=== PATIENT | female | born 1960 | race Caucasian/White ===

== ENCOUNTER → 2016-10-24 | Outpatient (CLI) | payer OTHER ==
[2016-10-24 08:31] LABS: EKG EKG PERFORMED
[2016-10-24 08:48] LABS: Aty Lym Flag Slight; Basophils % (A) 1 %; CH 31.9; CHCM 33.8; Eosinophils # (A) 0.2 k/uL (0-0.7); Eosinophils % (A) 2 %; HCT 49.2 % (34.0-46.0); HDW 2.75; HGB 16.2 gm/dL (11.4-16.0); Luc % (Auto) 5; Lymphocytes # (A) 1.9 k/uL (1.0-4.8); Lymphocytes % (A) 23 %; MCH 31.1 pg (25.0-35.0); MCHC 32.8 g/dL (31.0-37.0); MCV 94.8 fL (80.0-100.0); Mean Platelet Volume 7.4; Monocytes # (A) 0.7 k/uL (0-1.0); Monocytes % (A) 8 %; Neutrophils % (A) 61 %; RBC 5.19 m/uL (3.80-5.40); RDW 14.2 % (11.5-15.5); WBC 8.2 k/uL (3.8-10.6); WBC (Perox) 8.63
[2016-10-24 09:01] LABS: ALT 29 U/L (9-52); AST 16 U/L (14-36); Alkaline Phosphatase 84 U/L (38-126); Anion Gap 11 mmol/L; Blood Urea Nitrogen 15 mg/dL (7-17); Calcium 9.3 mg/dL (8.4-10.2); Carbon Dioxide 24 mmol/L (22-30); Chloride 105 mmol/L (98-107); Glucose 266 mg/dL (74-99); Non-African American GFR(MDRD) >60 (>60 ml/min/1.73 sqM); Potassium 4.6 mmol/L (3.5-5.1); Sodium 140 mmol/L (137-145); Total Bilirubin 0.4 mg/dL (0.2-1.3); Total Protein 7.2 g/dL (6.3-8.2)
--- NOTE | 2016-10-24 10:30 | XR ---
EXAMINATION TYPE: XR chest 2V DATE OF EXAM: 10/24/2016 8:58 AM COMPARISON: None HISTORY: 56-year-old female presurgical evaluation TECHNIQUE: Frontal and lateral views FINDINGS: The cardiomediastinal silhouette, aorta, and pulmonary vasculature are within normal limits. Mild per ibronchial cuffing probably chronic. Otherwise, lungs and pleural spaces are clear. IMPRESSION: Mild peribronchial cuffing probably chronic in the absence of any acute symptoms, probably chronic br onchitis/asthma. No acute process seen.
[2016-10-24 11:19] LABS: Hemoglobin A1C 8.6 % (4.2-6.1)
== END | disposition home or self-care (01) ==
LOC: LABWHC1 08:18
PROVIDERS: ATTEND Surgery Plastic and Reconstructive Surgery
DX: K80.80 Other cholelithiasis without obstruction (principal)
CPT/HCPCS: 36415; 71020; 80053; 83036; 85025; 93005

== ENCOUNTER 2016-11-03 12:27 | Day surgery (SDC) | payer OTHER ==
[2016-10-31 12:36] VITALS: BMI 43.4
--- NOTE | 2016-11-03 09:01 | P.GSHP ---
History of Present Illness H&P Date: 11/03/16 CHIEF COMPLAINT: Cholecystitis HISTORY OF PRESENT ILLNESS: Halie Julio is a 56-year-old female who presents with diabetes uncontrolled including diarrhea. She has never had a colonoscopy before. She smokes at least 18 cigarettes per day. She says, I have no intention of quitting smoking. Secondary to her diarrhea, she now presents for further evaluation. She underwent HIDA scan including diagnostic studies that were consistent also with gallstones. PAST MEDICAL HISTORY: Please see list PAST SURGICAL HISTORY: Please see list MEDICATIONS: Please see list ALLERGIES: Denies. SOCIAL HISTORY: No illicit drug use. FAMILY HISTORY: Pertinent for gallbladder disease REVIEW OF ORGAN SYSTEMS: CONSTITUTIONAL: No reports of fevers or chills. HEENT: Denies any troubles with the vision or hearing. PHYSICAL EXAM: VITAL SIGNS: Afebrile vital signs stable GENERAL: Well-developed pleasant in no acute distress. HEENT: No scleral icterus. Extraocular movements grossly intact. Moist buccal mucosa. NECK: Supple without lymphadenopathy. CHEST: Unlabored respirations. Equal bilateral excursions. CARDIOVASCULAR: Regular rate regular rhythm rhythm. Distal 2+ pulses. ABDOMEN: Soft, nondistended. Tender along the epigastrium and right upper quadrant. MUSCULOSKELETAL: No clubbing, cyanosis, or edema. NEURO: Cranial nerves II to XII within normal limits. No focal or lateralizing signs. PSYCH: Alert and oriented to person, place and time. ASSESSMENT: 1. History of gallstones. 2. Diabetes type 2. 3. Medical non-compliance with tobacco cessation. 4. Tobacco cessation and counseling for over 3-5 minutes. 5. Need for colonic screening. 6. Diarrhea. 7. Liver cirrhosis. PLAN: 1. I have discussed with her that with the diarrhea and her lack of recent screening, she will need a colonoscopy at some point either prior to 2-3 months after cholecystectomy. 2. She is high risk with her history of liver cirrhosis. As a result, a tertiary care center was advised. 3. I have also gone over with her for cutting down on her tobacco to minimize risk for complications and she demonstrated understanding. Past Medical History Past Medical History: Cancer, Diabetes Mellitus, Liver Disease, Osteoarthritis ( OA) Additional Past Medical History / Comment(s): Pt states beginning stages of Cirrosis of the liver. Uterine cancer 2009. History of Any Multi-Drug Resistant Organisms: None Reported Past Surgical History: Section Past Anesthesia/Blood Transfusion Reactions: No Reported Reaction Past Psychological History: No Psychological Hx Reported Smoking Status: Current every day smoker Past Alcohol Use History: None Reported Additional Past Alcohol Use History / Comment(s): Smokes 18 cigarettes per day, has been smoking for 29-30 yrs. Past Drug Use History: None Reported - Past Family History Mother Family Medical History: No Reported History Medications and Allergies Home Medications Medication Instructions Recorded Confirmed Type INSULIN LISPRO (humaLOG) [HumaLOG] 20 units SQ DAILY 10/31/16 10/31/16 History Insulin Glargine [Lantus] 100 unit SQ HS 10/31/16 10/31/16 History Pioglitazone [Actos] 30 mg PO DAILY 10/31/16 10/31/16 History Allergies Allergy/AdvReac Type Severity Reaction Status Date / Time No Known Allergies Allergy Verified 10/31/16 12:26
[~2016-11-03 12:27] MED LIST: ACETAMINOPHEN IV (For NPO) 1,000 MG in EMPTY BAG 1 BAG IVPB ONE; DEXAMETHASONE SOD PHOSPHATE 10 MG/ML 1 ML VIAL IV ONE; HEPARIN SODIUM,PORCINE 5,000 UNIT/ML 1 ML VIAL SQ ONE; HYDROmorphone 1 MG/ML 1 ML SYRINGE IVP PRN; LACTATED RINGERS 1,000 ML IV SCH; MIDAZOLAM 2 MG/2 ML VIAL IV PRN; ONDANSETRON 4 MG/2 ML VIAL IVP ONE; SCOPOLAMINE 1.5MG/72HR PATCH TRANSDERM ONE; ceFAZolin 2 GM in SODIUM CHLORIDE 0.9% 100 ML IVPB ONE
[2016-11-03 13:02] LABS: Glucose,Whole Blood 173 mg/dL (75-99)
[2016-11-03] MEDS ORDERED: LIDOCAINE 1% 20 ML VIAL (10MG/ML) FOR IV START INTRADERMA ONE (13:02)
[2016-11-03] MEDS ORDERED: PROPOFOL 10 MG/ML 20 ML VIAL IV ONE (13:43)
[2016-11-03] MEDS ORDERED: ePHEDrine 50 MG/ML 1 ML AMP ONE (13:43)
[2016-11-03] MEDS ORDERED: NEOSTIGMINE 1 MG/ML 10 ML VIAL ONE (13:43)
[2016-11-03] MEDS ORDERED: MIDAZOLAM 2 MG/2 ML VIAL ONE (13:43)
[2016-11-03] MEDS ORDERED: GLYCOPYRROLATE 0.2 MG/ML 2 ML VIAL ONE (13:43)
[2016-11-03] MEDS ORDERED: ROCURONIUM BROMIDE 10 MG/ML 10 ML VIAL IV ONE (13:43)
[2016-11-03] MEDS ORDERED: fentaNYL (PF) 50 MCG/ML 2 ML AMP ONE (13:43)
[2016-11-03] MEDS ORDERED: PHENYLEPHRINE-0.9% NACL SYG 1 MG/10 ML SYRINGE ONE (13:43)
[2016-11-03] MEDS ORDERED: LIDOCAINE 1% INJ 10MG/ML (20 ML MDV) ONE (13:43)
[2016-11-03] MEDS ORDERED: SUCCINYLCHOLINE CHLORIDE 100 MG/5 ML SYR IV ONE (13:43)
[2016-11-03] MEDS ORDERED: BUPIVACAIN-EPI 0.25%-1:200,000 30 ML VIAL SQ ONE ×2 (14:09→14:14)
[2016-11-03] MEDS ORDERED: LACTATED RINGERS 1,000 ML IV ONE ×2 (14:30→15:58)
--- NOTE | 2016-11-03 15:15 | P.PCN ---
Date of Procedure: 11/03/16 Preoperative Diagnosis: Symptomatic cholelithiasis, uncontrolled diabetes type 2, chronic tobacco use, chronic cholecystitis Postoperative Diagnosis: Same Procedure(s) Performed: Laparoscopic cholecystectomy Anesthesia: MANJUA, local Surgeon: Kellen Oliver Estimated Blood Loss (ml): 10 Pathology: other (Gallbladder) Condition: stable Disposition: same day Operative Findings: 1. Multiple gallstones. 2. Severe chronic cholecystitis with right upper quadrant adhesions. 3. Incarcerated incisional hernia lower midline with omentum. 4. Hepatomegaly with fatty liver disease. 5. Dilated cystic duct 8 mm.
[2016-11-03] MEDS ORDERED: PROMETHAZINE 25 MG TAB PO PRN (15:18)
[2016-11-03] MEDS ORDERED: HYDROmorphone 1 MG/ML 1 ML SYRINGE IVP PRN (15:18)
[2016-11-03] MEDS ORDERED: ONDANSETRON 4 MG/2 ML VIAL IVP PRN (15:18)
[2016-11-03] MEDS ORDERED: HYDROcodone/APAP 5-325MG 1 EACH TAB PO PRN (15:18)
[2016-11-03] MEDS ORDERED: NALOXONE 0.4 MG/ML 1 ML VIAL IV PRN (15:18)
[2016-11-03 15:27] VITALS: TEMP 96.8
[2016-11-03] MEDS ORDERED: INSULIN LISPRO (humaLOG) 300 UNIT/3 ML VIAL SQ ONE (15:33)
[2016-11-03 15:37] LABS: Glucose,Whole Blood 310 mg/dL (75-99)
[2016-11-03 15:56] VITALS: PULSE 96; RESP 16
[2016-11-03 16:52] VITALS: BP 127/68
--- NOTE | 2016-11-09 11:41 | P.OP ---
Date of Procedure: 11/03/16 Description of Procedure: SURGEON: JATIN JONES MD PREVENTIVE MEDICINE SPECIALIST: None. PREOPERATIVE DIAGNOSES: 1. Chronic Cholecystitis. 2. Symptomatic gallstones. 3. Diabetes type 2, insulin-dependent, uncontrolled. 4. Current tobacco use. 5. Biliary dyskinesia. 6. Hypertensive cardiomyopathy. 7. Morbid obesity due to excess calories. 8. BMI 43.5. POSTOPERATIVE DIAGNOSES: 1. Chronic Cholecystitis. 2. Symptomatic gallstones. 3. Diabetes type 2, insulin-dependent, uncontrolled. 4. Current tobacco use. 5. Biliary dyskinesia. 6. Hypertensive cardiomyopathy. 7. Morbid obesity due to excess calories. 8. BMI 43.5. 9. Incarcerated lower abdominal wall incisional hernia with omentum. 10. Hepatomegaly with fatty liver disease. 11. Severe right upper quadrant omental adhesions to gallbladder. OPERATION: Laparoscopic cholecystectomy ANESTHESIA: General with 30 mL 0.25% Marcaine with epinephrine. ESTIMATED BLOOD LOSS: 10 mL. SPECIMENS REMOVED: Gallbladder. COMPLICATIONS: None. INDICATIONS: The patient is a 56-year-old female who presents with chronic cholecystitis. She additional diagnostic imaging including HIDA scan and ultrasound confirming gallstones and biliary dyskinesia. Surgical intervention with a laparoscopic cholecystectomy was described at length including injury to the biliary tree, bleeding, infection, need for further surgery. Informed consent was obtained. DESCRIPTION OF THE PROCEDURE: The patient was brought to the operating room, laid in supine position. After general induction, the abdomen was prepped and draped in a standard sterile fashion. Prior to incision, a timeout protocol was confirmed with surgical team regarding patient's name, procedure to be performed including preoperative medications for which she had received heparin 5000 units subcutaneously as well as bilateral SCDs for DVT prophylaxis. A transverse 10 mm incision left upper quadrant incision was made after localizing the skin. A 0 degree 11-mm laparoscopic trocar entry was performed and entered into the peritoneal cavity. Diagnostic laparoscopy confirmed no injury to bowel, viscera or mesentery. Yellow appearance of the liver serosa including moderate hepatomegaly confirmed fatty liver disease. Along the lower abdomen at the midline, greater omentum was found incarcerated along a lower midline incision from her previous . Next, two 5 mm trocars were placed along the right costal margin followed another 5 mm port along the epigastrium placed under direct localization. The patient was placed in steep reverse Trendelenburg position with the right side up. With a moderate adhesions along the gallbladder, careful dissection using blunt graspers were used. Sonicision was used to divide her adhesions. Over 30 minutes of careful lysis of adhesions was performed without enterotomies. The liver was large and heavy adding complexity to her case as well as limiting complete reflection of the gallbladder over the dome of the liver. The gallbladder fundus was retracted to the anterior dome wall. Initial attention was brought to the infundibulum which was gently retracted in the inferior lateral approach. Using a Kittner, the cystic duct including the cystic artery was carefully skeletonized. The cystic artery was dilated to 8 mm. The common bile duct was identified. The cystic duct was palpated and gallstones were milked towards the gallbladder. A large 12 mm clip sales process manager was selected for the rest of the case. The 11 mm port at the left upper quadrant was exchanged for a 12 mm port. Two clips were placed proximally, and 2 clips were placed distally along the cystic duct and then divided using Sonicision. Again care was taken to avoid any injury to the biliary tree as the common bile duct was visualized during this portion of dissection. Next, the cystic artery was clipped twice proximally, once distally and then cauterized and divided using Sonicision. Electro-Bovie cautery was used to remove the gallbladder from the hepatic fossa without decompression of the gallbladder. Hemostasis was checked and found to be adequate. The gallbladder was removed from the abdominal cavity using an Endo Catch bag and passed off for further pathological analysis. All instruments and pneumoperitoneum were removed from the abdominal cavity. The fascial defect was less than 8 mm for the 11-mm port site. The rest of incisions were reapproximated using 4-0 Monocryl in an interrupted subcuticular fashion. A total of 30 mL of 0.25% Marcaine with epinephrine was infiltrated to all wounds for postop analgesia. Dermabond was applied to the skin. At the end of the procedure, needle, sponge, and instrument count was verified correct by surgical resident. The patient had tolerated the procedure well and was taken to postanesthesia care unit in stable condition. Intraoperative films were discussed and reviewed with the patient's family who were pleased with the level of care. FINDINGS: 1. Multiple gallstones. 2. Severe chronic cholecystitis with right upper quadrant adhesions. 3. Incarcerated incisional hernia lower midline with omentum. 4. Hepatomegaly with fatty liver disease. 5. Dilated cystic duct 8 mm.
== END 2016-11-03 17:29 | disposition home or self-care (01) ==
LOC: OR 12:27
PROVIDERS: ATTEND Surgery Plastic and Reconstructive Surgery
DX: K80.10 Calculus of gallbladder with chronic cholecystitis without obstruction (principal); K43.0 Incisional hernia with obstruction, without gangrene; F17.210 Nicotine dependence, cigarettes, uncomplicated; R19.7 Diarrhea, unspecified; E11.65 Type 2 diabetes mellitus with hyperglycemia; K66.0 Peritoneal adhesions (postprocedural) (postinfection); K74.60 Unspecified cirrhosis of liver; K76.0 Fatty (change of) liver, not elsewhere classified; I11.9 Hypertensive heart disease without heart failure; Z79.84 Long term (current) use of oral hypoglycemic drugs; Z79.4 Long term (current) use of insulin; Z79.899 Other long term (current) drug therapy; E66.01 Morbid (severe) obesity due to excess calories; Z68.41 Body mass index [BMI] 40.0-44.9, adult; Z91.19 Patient's noncompliance with other medical treatment and regimen
CPT/HCPCS: 47562; 88304; J2250; J1644; J1100; J2710; J0690; J2405; J2001; J3010; J1170; J0131; J2370; J0330; J2704